=== PATIENT | female | born 1965 | race Two or more races ===

== ENCOUNTER 2021-12-23 09:00 | Emergency (ER) | payer BC, OTHER ==
[~2021-12-23] VITALS: Ht 167.6 cm; Wt 59.0 kg
[2021-12-23] MEDS ORDERED: ACETAMINOPHEN 500 MG TAB PO ONE (09:45)
[2021-12-23 12:25] VITALS: BP 113/70
[2021-12-23] MEDS ORDERED: IBUP600T27 PO (12:43)
[2021-12-23] MEDS ORDERED: CYCL-837 PO (12:43)
== END 2021-12-23 12:51 | disposition home or self-care (01) ==
LOC: EDBD 09:00 → ER 09:00
DX: S20.219A Contusion of unspecified front wall of thorax, initial encounter (principal); S70.12XA Contusion of left thigh, initial encounter; S39.012A Strain of muscle, fascia and tendon of lower back, initial encounter; S46.912A Strain of unspecified muscle, fascia and tendon at shoulder and upper arm level, left arm, initial encounter; V43.52XA Car driver injured in collision with other type car in traffic accident, initial encounter; Y93.89 Activity, other specified; Y92.410 Unspecified street and highway as the place of occurrence of the external cause; Y99.8 Other external cause status
CPT/HCPCS: 36415; 71046; 72100; 72125; 73020; 73590; 84484; 93005